=== PATIENT | male | born 1995 | race Caucasian/White ===

== ENCOUNTER → 2024-05-31 09:28 | Outpatient (BNVA) | payer OTHER, SELFPAY | DX: M25.511 Pain in right shoulder (principal) | CPT/HCPCS: 73030 ==

== ENCOUNTER → 2024-06-16 08:15 | Outpatient (BNVA) | payer OTHER, SELFPAY | PROVIDERS: Visit Provider Orthopaedic Surgery | DX: S46.911A Strain of unspecified muscle, fascia and tendon at shoulder and upper arm level, right arm, initial encounter (principal); X58.XXXA Exposure to other specified factors, initial encounter | CPT/HCPCS: 73030 ==

== ENCOUNTER 2024-06-28 11:37 | Outpatient (CLI) | payer OTHER, SELFPAY ==
--- NOTE | 2024-06-28 12:15 | MR_ITS ---
WS: [id number] MRI RIGHT SHOULDER NONCONTRAST TECHNIQUE: Sagittal T2, coronal T1, T2 and proton density imaging. Axial gradient PDE imaging. CLINICAL INFORMATION: right shoulder pain COMPARISON: None. FINDINGS: Prominent fluid and edema at the AC joint. Associated soft tissue thickening. Findings can be seen with synovitis likely inflammatory assuming no history of trauma. This also can be seen with grade 1 AC joint injury if history of recent trauma. Normal AC joint alignment. Normal supraspinatus. Normal infraspinatus. Normal teres minor. Subscapularis tendon is normal. Normal biceps tendon in the bicipital groove. Intra-articular biceps tendon appears intact. Normal biceps labral anchor. No other acute findings. MR/MR shoulder RT wo con* [id number] IMPRESSION: 1. Prominent fluid and edema at the AC joint with capsular thickening suspicio us for synovitis likely inflammatory. This also could be seen with AC joint inj ury if history of trauma. Normal alignment. 2. Rotator cuff is intact. 3. Normal biceps tendon in the bicipital groove. 4. No other acute findings.
== END 2024-06-28 11:38 | disposition home or self-care (01) ==
LOC: RAD 11:38
PROVIDERS: Visit Provider Orthopaedic Surgery
DX: S46.911A Strain of unspecified muscle, fascia and tendon at shoulder and upper arm level, right arm, initial encounter (principal); X58.XXXA Exposure to other specified factors, initial encounter; R93.89 Abnormal findings on diagnostic imaging of other specified body structures; M25.411 Effusion, right shoulder
CPT/HCPCS: 73221

== ENCOUNTER → 2024-08-08 09:16 | Outpatient (BNVA) | payer OTHER, SELFPAY | PROVIDERS: Visit Provider Family Medicine | DX: Z01.818 Encounter for other preprocedural examination (principal) | CPT/HCPCS: 80053; 85025 ==

== ENCOUNTER 2024-08-09 11:02 | Day surgery (SDC) | payer OTHER, SELFPAY ==
[2024-08-09] VITALS (10 sets, daily range): BP systolic 100–136; BP diastolic 63–75; PULSE 68–88; RESP 16–18; TEMP 36.2–36.9; O2SAT 92–97; BMI 33.7
--- NOTE | 2024-08-09 11:40 | W.PM.OPSUD ---
Surgery/Procedure H&P Update DATE OF PROCEDURE: August 09, 2024 DATE H&P PERFORMED: 08/08/24 H&P UPDATE INFORMATION: I have reviewed H&P completed within last 30 days, I have examined patient prior to procedure, No changes to prior documentation and Risks and benefits of the procedure reviewed PREOP DIAGNOSIS: Painful right shoulder, AC arthritis PLANNED PROCEDURE: Operation Date: 08/09/24 13:15 Proposed Procedures p Right shoulder diagnostic and surgical arthroscopy with decompression(Right) - Hu Garcia MD
[2024-08-09] MEDS: sodium chloride 0.9% 1,000 ML 30 ML IV (12:11)
--- NOTE | 2024-08-09 12:17 | SUR.PREOP ---
12:00 RIGHT INTRASCALENE NERVE BLOCK PERFORMED USING 20 ML OF 0.5% ROPIVACAINE WITH 4mg OF DECADRON. PT TOLERATED PROCEDURE WELL. 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
--- NOTE | 2024-08-09 12:29 | ANES.PREANE2 ---
Pre-Anesthetic Assessment Height/Weight: Height 1.75 m Weight 103.873 kg Temp Pulse Resp BP Pulse Ox O2 Del Method 98.4 F 76 16 136/75 97 Room Air 08/09/24 11:28 08/09/24 11:28 08/09/24 11:28 08/09/24 11:28 08/09/24 11:28 08/09/24 11:33 Preop Diagnosis: Painful right shoulder, AC arthritis Operation Date: 08/09/24 13:15 Proposed Procedures p Right shoulder diagnostic and surgical arthroscopy with decompression(Right) - Hu Garcia MD Familial anesthetic complications: None Was Beta Kim taken within 24 hours: N/A Was Clonidine taken within 24 hours: N/A Last intake: Intake Last Liquid Date 08/08/24 Last Liquid Time 21:00 Last Solid Date 08/08/24 Last Solid Time 21:00 Social Alcohol, No alcohol and No tobacco Exam alert, oriented x 3, clear to auscultation bilaterally and regular rate & rhythm Airway Cervical ROM: within normal limits Mallampati: Class III Dentition: full History/ROS No significant history except as noted Pulmonary None reported CV/HEM None reported None reported Hepatic None reported GI None reported Metabolic None reported Musc/skel Osteoarthritis/DJD Neuropsych None reported Anesthetic Plan ASA status: 1 Anesthesia: Anesthesia Evaluation, Eval. for regional block and General Risk of > 500 ml blood loss (7ml/kg in children): No Medications/Allergies Home Medications ?Medication ?Instructions ?Recorded ?Confirmed ?Last Taken ?Type No Known Home Medications 05/31/24 08/08/24 Unknown History Allergies Allergy/AdvReac Type Severity Reaction Status Date / Time cortisone Allergy Intermediate facial Verified 08/08/24 09:06 swelling Current Medications Generic Name Dose Route Start Last Admin Trade Name Freq PRN Reason Stop Dose Admin Sodium Chloride 1,000 mls @ 30 mls/hr 08/09/24 12:00 08/09/24 12:11 Sodium Chloride 0.9% IV 08/10/24 11:59 30 mls/hr .Q24H PETRA Administration PFSH Anesthesia Medical History Acromioclavicular joint injury Social History Smoking and tobacco/nicotine status: never used tobacco/nicotine Anesthesia Procedures Nerve Block Nerve Block 1: Time Out Performed: Yes (name, , allergy, laterality, labs, anticoagulation, local. ) Consent: requested by attending/covering physician Nerve block location: interscalene Anesthesia monitors applied: pulse oximetry, EKG and BP cuff Nerve block position: semi sitting Anesthetic Used: ropivicaine 0.5% Amount of anesthesia used (mL): 20 Ultrasound used to: recognize landmarks, visualize and ID brachial plexus and visualize and ID interscalene groove Nerve Stimulator Used?: Yes Interscalene/Femoral BLK: 2 stimuplex 22 g needle used for position and inplane approach, visualize local anesthetic spread and no vascular puncture identified Injection: neg aspiration of heme and paresthesia +/- Patient Tolerated Procedure: well and no complications Complications: none
[2024-08-09] MEDS: ceFAZolin 2,000 mg SDV 2000 MG IVP (12:31)
--- NOTE | 2024-08-09 13:16 | P.OP_ITS ---
Operative Report Date of procedure: August 09, 2024 Surgeon: Hu Garcia MD Procedure: Preoperative diagnosis: Painful right shoulder with AC arthritis Postoperative diagnosis: Scar tissue/bands within the glenohumeral joint line anteriorly, acromial impingement, AC joint arthritis Procedure: Diagnostic right shoulder arthroscopy with debridement of scar tissue, acromioplasty and A/C joint decompression Surgeon: Hu Garcia MD Supervisory Aide: JULIANO Deutsch's assistance was necessary for positioning of the patient, assistance during the procedure, wound closure, and transport to the PACU Anesthesia: General With preoperative scalene block EBL: 5 cc Indications: Eric is a 29-year-old white male who has been followed by his primary care for some time now with pain and discomfort within his right shoulder over the AC joint. Patient indicates back in May of this year he was digging with a shovel when he had something hard jamming his right shoulder. This caused him to feel a pop and after that had pain. Is continue to be persistent pain. He has had injections into the area however this has not helped. MRI of the area demonstrated inflammation of the AC joint and degenerative changes. Also impingement of the acromion anteriorly. No other gross pathology was identified. Therefore, after evaluating him and on clinical exam as well as x-rays and MRI he was offered a diagnostic right shoulder arthroscopy with all indicated procedures including decompression of the shoulder. He is agreeable to this after all risk benefits treatment alternatives were discussed with him. Procedure: After obtaining written consent patient had scalene block administered in preop holding area. Patient was then taken to the operating room placed on the operative table supine position general anesthetic administered. Once good anesthesia was achieved patient was placed in the beachchair position and secured to the table and padded well. Right shoulder and arm were prepped and draped usual fashion. After surgical timeout standard posterior portals made #11 blade camera cans placed within the glenohumeral joint line. Anterior working portal was made at the level of the clavicle and A/C joint. Evaluation of the within the shoulder demonstrated a bands of scar tissue anteriorly over the capsule and down to the anterior inferior glenohumeral ligament. Probing the labrum demonstrated intact labrum. He had an intact anchor to this biceps tendon. Rotator cuff was well anchored to the humerus with no signs of damage or injury. Mechanical shaver was used to remove some of the scar tissue from the anterior portion of the capsule. Cannula was then repositioned in the subacromial space. Using a thermal probe as well as mechanical shaver decompression of the bursa was done until visualization of the acromion and AC joint were accomplished.. Once good visualization was seen and demonstration of a bulbous distal clavicle and tight AC joint as well as acromial hook mechanical bur was then used to do it AC decompression as well as a debride the anterior hook of the acromion. Shoulders washed coachman sterile irrigation. Once adequate decompression was achieved all cannulas removed. Wounds were closed with 3-0 Prolene interrupted sutures. They were then cleaned and dried dressed with Xeroform gauze sterile gauze dressing ABDs and adhesive tape. Patient was placed in a arm sling. He was then awakened and transferred to the cover room stable condition
[2024-08-09] MEDS: fentaNYL 50 mcg/mL INJ 2mL IVP (14:07)
[2024-08-09] MEDS: HYDROcodone-acetaminophen 5-325 mg Tablet 1 TAB PO (14:29)
--- NOTE | 2024-08-09 15:00 | ANE.PACU2 ---
Inpatient post-anesthesia follow up: Airway intact: Yes Vital signs: Temperature 97.9 F Pulse Rate 82 Respiratory Rate 16 Blood Pressure 112/75 Pulse Oximetry 96 Oxygen Delivery Me thod Room Air Oxygen Flow Rate 2 Fraction of Inspir ed Oxygen Hydration adequate: Yes Nausea and vomiting: No Pain level: 1 Mental status: Baseline
== END 2024-08-09 15:00 | disposition home or self-care (01) ==
PROVIDERS: Visit Provider Orthopaedic Surgery
PROC: (CPT 29805; principal; 2024-08-09 12:55)
DX: M19.011 Primary osteoarthritis, right shoulder (principal); M75.41 Impingement syndrome of right shoulder
CPT/HCPCS: 29822; 29826; J0690; J1100; J2250; J2405; J2704; J2795; J3010; J3490; J7030; J9999